=== PATIENT | female | born 1925 | race African-American/Black ===

== ENCOUNTER 2016-06-19 04:47 | Emergency (ER) | payer MEDICARE ==
[~2016-06-19] VITALS: Ht 157.5 cm; Wt 72.6 kg
[2016-06-19 05:14] VITALS: BP 165/74
--- NOTE | 2016-06-19 05:18 | PHYS DOC ---
Adult General Chief Complaint Chief Complaint: HIP PAIN HPI HPI This is an 89-year-old female who states she's having left hip pain that does radiate somewhat from her buttock into her thighs with some mild left knee pain as well. Patient states her symptoms started several days ago after an abnormal twisting motion of her left hip in which she states she feels her hip that have popped in and out. States she has been trying Tylenol and Motrin with minimal to no relief. She states she's having trouble sleeping at night with her pain. Currently she rates the pain at a 7 out of 10 and described as a dull, aching sensation. Patient states she has been ambulatory but that it causes significant pain. Review of Systems Review of Systems Constitutional: Denies fever or chills [] Eyes: Denies change in visual acuity, redness, or eye pain [] HENT: Denies nasal congestion or sore throat [] Respiratory: Denies cough or shortness of breath [] Cardiovascular: No additional information not addressed in HPI [] GI: Denies abdominal pain, nausea, vomiting, bloody stools or diarrhea [] : Denies dysuria or hematuria [] Musculoskeletal: Denies back pain, has joint pain [] Integument: Denies rash or skin lesions [] Neurologic: Denies headache, focal weakness or sensory changes [] Endocrine: Denies polyuria or polydipsia [] Current Medications Current Medications Current Medications Medications (Trade) Dose Ordered Sig/Jammie Start Time Stop Time Status Last Admin Dose Admin Ketorolac Tromethamine (Toradol Im) 60 mg 1X ONCE 06/19/16 05:30 06/19/16 05:33 DC 06/19/16 05:45 60 MG Orphenadrine Citrate (Norflex) 60 mg 1X ONCE 06/19/16 05:30 06/19/16 05:33 DC 06/19/16 05:45 60 MG Allergies Allergies Allergies Coded Allergies Type Severity Reaction Last Updated Verified cetirizine Allergy Unknown 06/19/16 Yes indomethacin Allergy Unknown 06/19/16 Yes Physical Exam Physical Exam Constitutional: Well developed, well nourished, no acute distress, non-toxic appearance. [] HENT: Normocephalic, atraumatic, bilateral external ears normal, oropharynx moist, no oral exudates, nose normal. [] Eyes: PERRLA, EOMI, conjunctiva normal, no discharge. [] Neck: Normal range of motion, no tenderness, supple, no stridor. [] Cardiovascular:Heart rate regular rhythm, no murmur [] Lungs & Thorax: Bilateral breath sounds clear to auscultation [] Abdomen: Bowel sounds normal, soft, no tenderness, no masses, no pulsatile masses. [] Skin: Warm, dry, no erythema, no rash. [] Back: No tenderness, no CVA tenderness. [] Extremities: Moderate tenderness to the left hip with no palpable deformity or swelling noted, no cyanosis, no clubbing, ROM intact but with noted tenderness in the left hip, no edema. [] Neurologic: Alert and oriented X 3, normal motor function, normal sensory function, no focal deficits noted. [] Psychologic: Affect normal, judgement normal, mood normal. [] Current Patient Data Vital Signs Vital Signs Date Time Temp Pulse Resp B/P Pulse Ox O2 Delivery O2 Flow Rate FiO2 06/19/16 05:14 97.7 72 16 98 Room Air 97.7 EKG EKG [] Radiology/Procedures Radiology/Procedures Left hip 2 view with pelvis view as interpreted by me does not show an obvious fracture or acute bony abnormality. Course & Med Decision Making Course & Med Decision Making Pertinent Labs and Imaging studies reviewed. (See chart for details) This 89 year old female with ongoing left hip pain will have left hip films to rule out any acute abnormality. I will give the patient IM injection of Toradol and Norflex and then reassess her for her pain and ultimately ambulated around the department to see if she has able to walk. I deem her injuries to be low risk for any acute fracture. Plain films of her left hip do not reveal any obvious fracture. I discussed that a radiologist will be overreading her films and that we will call her later if any subtle findings that indicate fracture are seen. Upon my reassessment, the patient feels comfortable going home with the plan to take norco only at night to help her rest and Naproxen during the day for her symptoms and to use her walker at home to help her ambulate. She will follow up with Dr. Quevedo in the next several days for her hip pain. Dragon Disclaimer Dragon Disclaimer This electronic medical record was generated, in whole or in part, using a voice recognition dictation system. Departure Departure Impression: Primary Impression: Hip pain Disposition: HOME, SELF-CARE Condition: STABLE Referrals: MIRIAM BLACKWELL MD (PCP) Patient Instructions: Hip Pain Additional Instructions: Please follow up with your primary doctor in the next several days as discussed. Take your norco at night to help you rest. Return to the ER if you develop any worsening of your symptoms. Use your walker at home to help you ambulate. Take your naproxen during the day to help your pain and symptoms. Avoid any strenuous activities and try to rest as much as possible for the next two days. Scripts Naproxen 500 Mg Tablet.dr500 Mg PO BID #10 Prov:ANGELO LIU DO 06/19/16 Hydrocodone/Apap 5-325 (Raymond 5-325 Tablet)1 Each Tablet1 Tab PO PRN Q6HRS PRN PAIN #6 TAB Prov:ANGELO LIU DO 06/19/16 ANGELO LIU DO Jun 19, 2016 05:18
[2016-06-19] MEDS ORDERED: ORPHENADRINE CITRATE 60 MG/2 ML VIAL. IM ONE (05:30)
[2016-06-19] MEDS ORDERED: KETOROLAC TROMETHAMINE 60 MG/2 ML SYRINGE. IM ONE (05:30)
[2016-06-19] MEDS ORDERED: NAPR500T8 PO (06:18)
[2016-06-19] MEDS ORDERED: HYDR-971 PO (06:18)
--- NOTE | 2016-06-19 07:12 | RAD ---
Pelvis with left hip, 3 views, 06/19/2016: History: Hip and back pain No fracture or destructive bony lesion is seen. There is mild narrowing of both hip joints with mild marginal spurring. Scattered vascular calcifications are present. Degenerative changes are evident in the lower lumbar spine. IMPRESSION: 1. 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 2. No acute bony abnormality is detected.
== END 2016-06-19 06:40 | disposition home or self-care (01) ==
LOC: ER 04:47
DX: M25.552 Pain in left hip (principal); M25.562 Pain in left knee; Z88.8 Allergy status to other drugs, medicaments and biological substances
CPT/HCPCS: 73502; 96372; 99284; J1885; J2360